=== PATIENT | female | born 1975 | race Caucasian/White ===

== ENCOUNTER → 2018-08-14 10:03 | Outpatient (CLI) | payer BC, SELFPAY ==
[2016-03-14 10:26] VITALS: BMI 24.5
== END ==
PROVIDERS: Family Provider Family Medicine; PCP Family Medicine; Referring Provider Family Medicine; Visit Provider Family Medicine
DX: N39.0 Urinary tract infection, site not specified (principal)
CPT/HCPCS: 87086; 87088; 87186

== ENCOUNTER → 2021-05-23 11:05 | Outpatient (CLI) | payer BC, SELFPAY ==
[2021-05-23 15:37] LABS: Cholesterol 165 mg/dL (200); High Density Lipoprotein 47 mg/dL; Triglycerides 70 mg/dL; Very Low Density Lipoprotein 14 mg/dL (5-40)
== END ==
PROVIDERS: PCP Family Medicine; Referring Provider Family Medicine; Visit Provider Family Medicine
DX: Z00.00 Encounter for general adult medical examination without abnormal findings (principal)
CPT/HCPCS: 36415; 80061

== ENCOUNTER → 2022-01-08 | Outpatient (CLI) | payer BC, SELFPAY ==
--- NOTE | 2022-01-08 13:46 | BI_ITS ---
MAMMOGRAPHY - BILATERAL SCREENING REASON FOR EXAM: Female, 46 years old. Routine annual screening examination. PERTINENT HISTORY: Aunt with breast cancer. TECHNIQUE: Digital bilateral breast pola (3D mammographic acquisition) in the CC and MLO projections. 2-D mediolateral oblique (MLO) and craniocaudad (CC) views of both breasts were obtained. CAD: Full Field Digital Mammography with Computer Added Detection was performed. COMPARISON: Comparison is made with prior outside examination dated 09/17/2016. FINDINGS: Breast Composition: The breasts are extremely dense, which lowers the sensitivity of mammography. There are no dominant masses or suspicious calcifications. No other significant abnormalities are identified. There has been no significant change since the prior study. BI/SCRN MAMM (CAD)W/POLA BILAT IMPRESSION: Stable bilateral screening mammogram. Yearly follow-up mammogram recommended. (A) ASSESSMENT CATEGORY: BIRADS Category 1: Negative. A letter regarding these results will be sent to the patient by the facility within 30 days. Approximately 10% of breast cancers are not detected by mammography. A normal mammogram should not delay biopsy of a clinically suspicious abnormality. [id number] Electronically Signed: Noel Weaver MD at 14:37 EDT ,
== END | disposition home or self-care (01) ==
LOC: OPBI 13:43
PROVIDERS: PCP Family Medicine; Referring Provider Family Medicine; Visit Provider Family Medicine
DX: Z12.31 Encounter for screening mammogram for malignant neoplasm of breast (principal)
CPT/HCPCS: 77063; 77067

== ENCOUNTER → 2022-06-06 | Outpatient (CLI) | payer BC, SELFPAY ==
[2022-06-06 10:46] LABS: Cholesterol 182 mg/dL (200); High Density Lipoprotein 43 mg/dL; Triglycerides 94 mg/dL; Very Low Density Lipoprotein 19 mg/dL (5-40)
== END | disposition home or self-care (01) ==
LOC: MTLAB 09:07
PROVIDERS: PCP Family Medicine; Referring Provider Family Medicine; Visit Provider Family Medicine
DX: Z00.00 Encounter for general adult medical examination without abnormal findings (principal)
CPT/HCPCS: 36415; 80061

== ENCOUNTER 2022-10-09 12:08 | Emergency (ER) | payer BC, SELFPAY ==
[2022-10-09 12:08] VITALS: BP 190/88; PULSE 124; RESP 16; TEMP 36.8; O2SAT 98; BMI 28.1
[2022-10-09 12:21] VITALS: BP 146/80; PULSE 108; RESP 18; O2SAT 98
--- NOTE | 2022-10-09 12:35 | CT_ITS ---
STUDY: CT PARANASAL SINUSES WITH CONTRAST REASON FOR EXAM: Female, 46 years old. Facial and jaw pain RADIATION DOSAGE (If Supplied By Facility): CTDIvol = ( 25.01 ) mGy, DLP = ( 523.64 ) mGycm TECHNIQUE: The patient was scanned in a multi-detector CT scanner. High resolution transaxial imaging was performed following the intravenous administration of IV 100mL Isovue-300. Sagittal and coronal images were reconstructed. Individualized dose optimization techniques were used for this CT. COMPARISON: None. FINDINGS: FRONTAL SINUSES: Normal development, occlusion of the right frontal sinus, left frontal sinus is patent ETHMOIDAL SINUSES: Normal development and aeration of the bilateral ethmoidal air cells with diffuse bilateral mucosal inflammatory disease. MAXILLARY SINUSES: Normal development and aeration of the bilateral maxillary antra with symmetric mucosal inflammatory disease. SPHENOIDAL SINUSES: Normal aeration of the bilateral sphenoid sinuses and there is no mucosal inflammatory disease. OMU: Normal aeration of the bilateral maxillary infundibulum. Normal uncinate process, ethmoid bulla, and hiatus semilunaris. MIDDLE TURBINATES: Normal bilateral middle turbinates without a gerardo bullosa or paradoxical curvature. INFERIOR TURBINATES: Normal bilateral inferior turbinates. NASAL SEPTUM: Slight nasal septal deviation to the right with a degenerative spur. Normal anterior cranial fossa, mahi nelson and cribriform plate. Normal bilateral orbital contents. Normal nasopharynx without adenoidal pad hypertrophy, or a posterior nasopharyngeal retention cyst. There is no demonstrated enhancing soft tissue or osseous abnormality. CT/Sinus/Facial Bone WITH Contras IMPRESSION: Diffuse mucosal thickening in the mid and inferior aspects of the maxillary sinuses, but the ostiomeatal complexes are widely patent. Opacified right frontal sinus Moderate bilateral ethmoid sinusitis No mucosal thickening or opacification in the sphenoid sinus No fracture or suspicious osseous lesion Electronically Signed: Gurmeet Shah MD at 13:23 EDT ,
--- NOTE | 2022-10-09 12:37 | EKG12_ITS ---
Test Reason : PAIN Blood Pressure : / mmHG Vent. Rate : 081 BPM Atrial Rate : 081 BPM P-R Int : 156 ms QRS Dur : 080 ms QT Int : 350 ms P-R-T Axes : 069 042 054 degrees QTc Int : 406 ms Normal sinus rhythm Normal ECG Confirmed by KRISTEN LILLY ([id number]), book or script editor DAGMAR MERCER ([id number]) on 10/15/2022 7:48:53 AM Referred By: PADMA Confirmed By:KRISTEN LILLY
--- NOTE | 2022-10-09 12:38 | EDS_ITS ---
HPI History of Present Illness Chief Complaint: Other, Pain/Inj Detail of Chief Complaint: Jaw pain Informant: patient Onset/Context/Timing Onset: Weeks (2) Context: Gradual Onset Timing: Continuous Quality: Ache Location: Left jaw Current Severity: Moderate Maximum Severity: Severe Worsened by: Moving jaw, especially anterior/posterior, eating Relieved by: Nothing including ibuprofen Associated Symptoms Associated Symptoms: Hurting into left ear and left lateral neck Narrative Narrative: Patient has had the symptoms for 2-week without any obvious injury/etiology. She was seen in urgent care, they sent her here. The patient is the only historian, she states they sent her here because her blood pressure was 144. She usually has blood pressures that are fairly normal including when she goes to her PCP and does not take any medication for blood pressure. She denies having any chest discomfort, arm pain, numbness or tingling, or dyspnea. She states she saw the dentist in the past 2 weeks and they ruled out a dental etiology of this. Eating makes it worse but she denies any foul taste or discharge in her mouth or bleeding. No throat symptoms. Furthermore she states she has a history of TMJ in the past, with clicking and states this is a different pain than that. Ibuprofen usually helps her TMJ and is not touching this. PFSH PFSH Medical History no medical history Home Medications citalopram 40 mg tablet 40 mg PO DAILY 03/14/16 [History Last Taken Unknown] ondansetron 4 mg disintegrating tablet 4 mg PO Q8H PRN PRN Nausea #10 tabs 03/14/16 [Rx Last Taken Unknown] oxycodone-acetaminophen 5 mg-325 mg tablet 1 - 2 tab PO Q4H PRN PRN Pain #20 tabs 03/14/16 [Rx Last Taken Unknown] amoxicillin 875 mg-potassium clavulanate 125 mg tablet 875 mg PO Q12H #20 TABLETS 10/09/22 [Rx Last Taken Unknown] hydrocodone-acetaminophen 5-325mg 5mg-325mg 1 tab PO Q6H PRN PRN Pain 3 days #10 TABLETS 10/09/22 [Rx Last Taken Unknown] Allergy/AdvReac Type Severity Reaction Status Date / Time No Known Allergies Allergy Verified 10/09/22 12:11 Family History no significant family his Surgical History Previous section Social History Smoking Status: Light Smoker (<10/day) ROS ROS ED Constitutional Constitutional ED: Denies chills or fever(s) Eyes Eyes: Denies change in vision or diplopia ENT ENT ED: Reports as per HPI and facial pain; Denies rhinorrhea or sore throat Cardiovascular Cardiovascular: Denies chest pain or palpitations Respiratory/Chest Respiratory/Chest: Denies cough, dyspnea or dyspnea on exertion Gastrointestinal Gastrointestinal: Denies abdominal pain, diarrhea, nausea or vomiting Genitourinary Genitourinary ED: Denies dysuria or hematuria Musculoskeletal Musculoskeletal: Reports neck pain; Denies back pain Integumentary Denies abscess or rash Neurologic Neurologic: Denies headache(s), paresthesias or weakness Psychiatric Psychiatric: Denies anxiety or suicidal thoughts EXAM Physical Exam Const Vital Signs: 10/09/22 12:08 10/09/22 12:21 Temperature 98.2 F Temperature Source Temporal Pulse Rate 124 H 108 H Respiratory Rate 16 18 Blood Pressure 190/88 H 146/80 H Blood Pressure Mean 122 102 Pulse Ox 98 98 Oxygen Delivery Method Room Air Room Air Positive well nourished and well developed General Appearance ED: well developed and NAD HEENT Reports moist mucous membranes HEENT Narrative: No malocclusion, no trismus. Nontender dentition. Normal voice and no stridor. Posterior oropharynx normal and clear. No tongue elevation or sublingual edema or submental swelling/tenderness. Patient has tenderness at Stensen's duct making her pain worse, but there is no discharge or erythema. Patient has tenderness reproducing her pain over the area where the left parotid is, however there is no swelling or erythema or palpable abnormality. TMJ preauricularly is not tender, she has no preauricular or periauricular lymphadenopathy, the external ear is benign the, the EAC is benign, and the TM is benign/normal. normocephalic and atraumatic Eyes PERRL and EOMs intact bilaterally Neck full ROM, no lymphadenopathy and supple Neck Narrative: But tender left superficial cervical without any palpable nodes. Chest Wall inspection of chest normal and palpation of chest normal Resp normal respiratory effort and clear to auscultation bilaterally Cardio regular rate, regular rhythm and no murmurs GI non-tender and non-distended Auscultation: normoactive bowel sounds Palpation: soft Back/Spine no CVA tenderness General Back: other FROM Extremity normal to inspection General Extremety ED: Negative for edema, pulses abnormal or tenderness General Extremity: Negative for edema or pulses abnormal Neuro oriented x3, CN's II-XII intact bilaterally and no sensory deficits noted Sensorium / Orientation: awake and alert Motor Exam: strength 5/5 throughout Psych mental status grossly normal Skin no rashes or lesions noted and no wounds MDM MDM MDM Narrative Medical decision making narrative: Initially patient presented into triage with blood pressure 190/88, certainly that is abnormally high but I am not concerned about a blood pressure of 144 when the patient is in pain. During my exam, her blood pressure is 132/80, again not an acute concern. The differential includes cardiac etiologies radiating to the jaw and neck, but given the exam with reproducible pain there, I think that is a lot less likely. I did do an EKG and a troponin, and those are negative. She is not having symptoms of an aortic dissection, so I do not think we need to do emergent imaging of her chest given this. I did, however, do imaging of her face with IV contrast, specifically looking to see if there is anything in the area of the left parotid that could be related to this pain. I reviewed the CT images, the parotid glands appear unremarkable, radiologist interpreted the scan as multiple sinus involvement of mucosal thickening without any air-fluid levels or signs of sinus obstruction. It is unknown if this represents the cause of her discomfort, as I discussed with her sinus pain can radiate, however her pain is reproducible away from any of the sinuses. Given her episode of high blood pressure, I did also do cardiac work-up in order to rule out referred discomfort from the heart, and that was negative/normal as well. Her blood pressure has been well controlled throughout her ED stay. At this time I think would be reasonable to treat her pain, and to put her on an antibiotic to treat sinus disease, referring her back to otolaryngology who she has seen before, if this does not resolve within the next 5 days. She is comfortable with that plan. Lab Data Attestation: I reviewed the patient's lab results. Labs: Laboratory Results - last 24 hr 10/09/22 10/09/22 12:48 12:48 WBC 9.0 RBC 4.91 Hgb 15.1 H Hct 44.7 MCV 91.0 MCH 30.8 MCHC 33.8 RDW Std Deviation 39.1 RDW Coeff of Claudette 11.7 Plt Count 287 MPV 9.9 Immature Gran % (Auto) 0.300 Neut % (Auto) 66.6 Lymph % (Auto) 24.0 Marquette % (Auto) 5.0 Eos % (Auto) 3.2 Baso % (Auto) 0.9 Absolute Neuts (auto) 6.0 Absolute Lymphs (auto) 2.16 Nucleated RBC % 0 Sodium 136 Potassium 3.8 Chloride 105 Carbon Dioxide 31.0 Anion Gap 0 L BUN 9 Creatinine 0.97 Estim Creat Clear Calc 67.12 Est GFR (MDRD) Af Amer 79 Est GFR (MDRD) Non-Af 65 BUN/Creatinine Ratio 9.3 L Glucose 118 H Calcium 8.9 Troponin I High Sens 3 Radiography Diagnostic Testing: Clinical Impression(s) from Imaging Studies Facial/Sinus 10/09/22 12:35 IMPRESSION: Diffuse mucosal thickening in the mid and inferior aspects of the maxillary sinuses, but the ostiomeatal complexes are widely patent. Opacified right frontal sinus Moderate bilateral ethmoid sinusitis No mucosal thickening or opacification in the sphenoid sinus No fracture or suspicious osseous lesion Electronically Signed: Gurmeet Shah MD at 13:23 EDT Reading Location ID and State: [facility] / [place] , Service support , Rhythm Strip Rhythm Strip: Sinus Rhythm Rate: 81 Ectopy: None EKG Initial EKG: Attestation: I personally reviewed and interpreted this EKG as follows: Interpretation: Sinus Rhythm and No Acute Injury Pattern Comments: Normal EKG Prior EKG tracings: available for review Prior: Unchanged Discharge Plan Triage Chief Complaint: Other, Pain/Inj ED Provider: Dago Carrasco Dx/Rx/DC Orders Clinical Impression: Pain, mandibular, Sinusitis Instructions: ED Sinusitis (Antibiotic Treatment) Prescriptions: New hydrocodone-acetaminophen [hydrocodone-acetaminophen] 5-325 mg tablet 1 tab PO Q6H PRN PRN (Reason: Pain) 3 Days Qty: 10 0RF amoxicillin-pot clavulanate [amoxicillin-pot clavulanate] 875-125 mg tablet 875 mg PO Q12H Qty: 20 0RF No Action citalopram 40 MG tablet 40 mg PO DAILY oxycodone-acetaminophen 1 TABLET tablet 1 - 2 tab PO Q4H PRN PRN (Reason: Pain) Qty: 20 0RF ondansetron 4 MG tablet 4 mg PO Q8H PRN PRN (Reason: Nausea) Qty: 10 0RF Primary Care Provider: Leeanna Salazar Referrals: Leeanna Salazar MD [Primary Care Provider] - Kenneth Elliott MD [Med Staff - Active Staff] - 3-5 Days if not improving Disposition Disposition: Home, Self Care
[2022-10-09 13:00] LABS: Absolute Lymphocyte Count 2.16 X10^3/uL (0.83-4.51); Basophil# 0.08 X10^3/uL; Basophil% 0.9 % (0-1); Eosinophil# 0.29 X10^3/uL; Eosinophils% 3.2 % (0-5); Hematocrit 44.7 % (37-47); Hemoglobin 15.1 g/dL (12.0-15.0); Lymphocyte # 2.16 X10^3/ul (0.83-4.51); Mean Corp Hgb Conc 33.8 g/dL (32-36); Mean Corpuscular Hgb 30.8 pg (27.0-32.0); Mean Platelet Vol. 9.9 fl (6.2-12.0); Monocyte# 0.45 X10^3/uL; NRBC Flagged by Analyzer 0 % (0-5); Neutrophil # 5.99 X10^3/uL (2.7-7.7); Neutrophil % 66.6 % (47-70); Platelet Count 287 K/mm3 (150-450); RBC Distribution Width CV 11.7 % (11.6-14.6); RBC Distribution Width SD 39.1 fl (35.1-43.9); Red Blood Count 4.91 M/mm3 (4.2-5.4)
[2022-10-09 13:20] LABS: Anion Gap 0 (5-15); BUN 9 mg/dL (7-18); BUN/Creat Ratio 9.3 RATIO (10-20); Calcium,Total 8.9 mg/dL (8.5-10.1); Chloride 105 mmol/L (98-107); Creatinine, Serum 0.97 mg/dL (0.55-1.02); EST Glomerular Filtration Rate 65 mL/min (>60); Est Glom Filt Rate - Afr Amer 79 mL/min (>60); Estimated Creatinine Clearance 67.12 ml/min; Glucose 118 mg/dL (74-106); Potassium 3.8 mmol/L (3.5-5.1); Sodium Level 136 mmol/L (136-145); Troponin-I HS 3 pg/mL (3.0-54.0)
== END 2022-10-09 14:34 | disposition home or self-care (01) ==
PROVIDERS: Emergency Provider Emergency Medicine; PCP Family Medicine; Visit Provider Emergency Medicine
DX: R68.84 Jaw pain (principal); F17.200 Nicotine dependence, unspecified, uncomplicated; J32.9 Chronic sinusitis, unspecified
CPT/HCPCS: 70487; 80048; 84484; 85025; 93005; 96360; 96361; 99282; J7040; Q9967; A4216

== ENCOUNTER → 2023-01-15 | Outpatient (CLI) | payer BC, SELFPAY ==
--- NOTE | 2023-01-15 15:48 | BI_ITS ---
MAMMOGRAPHY - BILATERAL SCREENING 3-D TOMOSYNTHESIS REASON FOR EXAM: Female, 47 years old. Routine screening PERTINENT HISTORY: Aunt with breast cancer.. TECHNIQUE: 2-D mammograms and 3-D Tomosynthesis of the breast (s) were performed. CAD was performed. COMPARISON: 01/08/2022 FINDINGS: The breast composition is heterogeneously dense that can obscure small breast masses. Scattered benign calcifications are seen. No dense spiculated masses or suspicious microcalcifications are identified. No architectural distortion is identified. There is no skin thickening or retraction. There has been no significant change since the prior study. BI/SCRN MAMM (CAD)W/POLA BILAT IMPRESSION: No mammographic signs of malignancy. Routine yearly mammograms recommended. ASSESSMENT CATEGORY: BIRADS Category 2: Benign. A letter regarding these results will be sent to the patient by the facility within 30 days. FOLLOW UP RECOMMENDATION: Yearly follow up mammogram recommended. (A) Approximately 10% of breast cancers are not detected by mammography. A normal mammogram should not delay biopsy of a clinically suspicious abnormality. Electronically Signed: Gurmeet Shah MD at 20:03 EDT ,
== END | disposition home or self-care (01) ==
LOC: OPBI 15:47
PROVIDERS: PCP Family Medicine; Referring Provider Family Medicine; Visit Provider Family Medicine
DX: Z12.31 Encounter for screening mammogram for malignant neoplasm of breast (principal)
CPT/HCPCS: 77063; 77067

== ENCOUNTER → 2023-04-07 | Outpatient (CLI) | payer BC, SELFPAY ==
[2023-04-07 15:42] LABS: Cholesterol 199 mg/dL (200); High Density Lipoprotein 50 mg/dL; Triglycerides 95 mg/dL; Very Low Density Lipoprotein 19 mg/dL (5-40)
[2023-04-07 16:20] LABS: Hemoglobin A1c 5.2 % (3.8-5.6)
== END | disposition home or self-care (01) ==
PROVIDERS: PCP Family Medicine; Referring Provider Family Medicine; Visit Provider Family Medicine
DX: Z00.00 Encounter for general adult medical examination without abnormal findings (principal)
CPT/HCPCS: 36415; 80061; 83036

== ENCOUNTER → 2023-12-22 | Outpatient (CLI) | payer BC, SELFPAY ==
[2023-12-22 18:03] LABS: Absolute Lymphocyte Count 3.07 X10^3/uL (0.83-4.51); Absolute Neutrophil Count 4.5 X10^3/uL (2.0-7.7); Basophil% 1.1 % (0-1); Eosinophil# 0.41 X10^3/uL; Eosinophils% 4.7 % (0-5); Hematocrit 46.1 % (37-47); Hemoglobin 15.3 g/dL (12.0-15.0); Lymphocyte # 3.07 X10^3/ul (0.83-4.51); Mean Corp Hgb Conc 33.2 g/dL (32-36); Mean Corpuscular Hgb 30.7 pg (27.0-32.0); Mean Corpuscular Volume 92.4 fL (81-99); Mean Platelet Vol. 10.9 fl (6.2-12.0); Monocyte# 0.71 X10^3/uL; Monocyte% 8.1 % (0-10); NRBC Flagged by Analyzer 0 % (0-5); Neutrophil # 4.46 X10^3/uL (2.7-7.7); Neutrophil % 50.9 % (47-70); Platelet Count 286 K/mm3 (150-450); RBC Distribution Width CV 12.1 % (11.6-14.6); RBC Distribution Width SD 41.1 fl (35.1-43.9); Red Blood Count 4.99 M/mm3 (4.2-5.4); White Blood Count 8.8 K/mm3 (4.4-11.0)
[2023-12-22 18:22] LABS: Hemoglobin A1c 5.1 % (3.8-5.6)
[2023-12-22 18:33] LABS: Anion Gap 4 (5-15); BUN 9 mg/dL (7-18); Chloride 109 mmol/L (98-107); Creatinine, Serum 0.82 mg/dL (0.55-1.02); EST Glomerular Filtration Rate 79 mL/min (>60); Est Glom Filt Rate - Afr Amer 96 mL/min (>60); Glucose 72 mg/dL (74-106); Potassium 4.5 mmol/L (3.5-5.1); Sodium Level 139 mmol/L (136-145)
== END | disposition home or self-care (01) ==
LOC: MFPLAB 14:41
PROVIDERS: PCP Family Medicine; Visit Provider Family Medicine
DX: Z00.01 Encounter for general adult medical examination with abnormal findings (principal)
CPT/HCPCS: 36415; 80048; 83036; 85025

== ENCOUNTER → 2024-01-20 | Outpatient (CLI) | payer BC, SELFPAY ==
--- NOTE | 2024-01-20 13:22 | BI_ITS ---
MAMMOGRAPHY - BILATERAL SCREENING REASON FOR EXAM: Female, 48 years old. Routine annual screening examination. PERTINENT HISTORY: Aunt with breast cancer. TECHNIQUE: Digital bilateral breast pola (3D mammographic acquisition) in the CC and MLO projections. 2-D mediolateral oblique (MLO) and craniocaudad (CC) views of both breasts were obtained. CAD: Full Field Digital Mammography with Computer Added Detection was performed. COMPARISON: Comparison is made with prior study dated January 15, 2023 and January 08, 2022. FINDINGS: Breast Composition: The breasts are heterogeneously dense, which may obscure small masses. There is a 1.5 cm x 1 cm well-defined nodule in the retroareolar region of the left breast. Correlation with ultrasound recommended. No other significant abnormalities are identified. BI/SCRN MAMM (CAD)W/POLA BILAT IMPRESSION: 1.5 cm x 1 cm well-defined nodule in the retroareolar region of the left breast. Correlation with ultrasound recommended. ASSESSMENT CATEGORY: BIRADS Category 0: Incomplete. Need additional imaging evaluation. A letter regarding these results will be sent to the patient by the facility within 30 days. Approximately 10% of breast cancers are not detected by mammography. A normal mammogram should not delay biopsy of a clinically suspicious abnormality. [id number] Electronically Signed: Noel Weaver MD at 14:18 EDT ,
== END | disposition home or self-care (01) ==
PROVIDERS: PCP Family Medicine; Referring Provider Family Medicine; Visit Provider Family Medicine
DX: Z12.31 Encounter for screening mammogram for malignant neoplasm of breast (principal)
CPT/HCPCS: 77063; 77067

== ENCOUNTER → 2024-01-22 | Outpatient (CLI) | payer BC, SELFPAY ==
--- NOTE | 2024-01-22 14:01 | US_ITS ---
STUDY: ULTRASOUND BREAST - LEFT REASON FOR EXAM: Female, 48 years old. Abnormal screening mammogram. TECHNIQUE: Axial and longitudinal images of the LEFT breast were performed with a high resolution ultrasound transducer. # OF IMAGES: 30 COMPARISON: Comparison is made with prior study dated January 20, 2024. FINDINGS: LEFT Breast: The mammographic abnormality corresponds to a 8 mm x 10 mm x 6 mm hypoechoic solid irregular nodule in the retroareolar region. Biopsy recommended. US/Breast Limited Unilateral IMPRESSION: The mammographic abnormality corresponds to a 8 mm x 10 mm x 6 mm hypoechoic solid irregular nodule in the retroareolar region of the left breast. Biopsy recommended. ASSESSMENT CATEGORY: BIRADS Category 4: Suspicious - Biopsy Should Be Considered. A letter regarding these results will be sent to the patient by the facility within 30 days. Electronically Signed: Noel Weaver MD at 14:59 EDT ,
== END | disposition home or self-care (01) ==
LOC: OPUS 13:57
PROVIDERS: PCP Family Medicine; Referring Provider Family Medicine; Visit Provider Family Medicine
DX: N63.25 Unspecified lump in the left breast, overlapping quadrants (principal)
CPT/HCPCS: 76642

== ENCOUNTER → 2024-02-06 | Outpatient (CLI) | payer BC, SELFPAY ==
--- NOTE | 2024-02-06 | BRBX_PTH ---
PATIENT: MELISSA ENRIQUEZ LOC: [facility] U#:[id number] AGE/SX: 48/F ROOM: RE02/06/[address]: Diane Blankenship PA-C : 1975 BED: DIS: 02/06/2024 SPEC #: [id number] RECD: 02/06/24 12:21 STATUS: LIAN ASHLEY #: [id number] JEANETTE: 02/06/24 00:[address]: Diane Blankenship DEPT: SURGICAL PATHOLOGY RECD BY: Siobhan rC ENTERED: 02/06/24 13:12 SP TYPE: BREAST BX CRISTINA DR: Dr. Leeanna Salazar MD Tissues: Left breast, NOS Procedures: Surgery Specimen Level IV HEADER OPERATION: Ultrasound guided left breast biopsy PRE-OP DIAGNOSIS: Left retroareolar nodule TISSUE SUBMITTED: Left retroareolar nodule MICROSCOPIC DIAGNOSIS Left retroareolar nodule, ultrasound guided core biopsy: Intraductal hyperplasia without atypia. Focal dense fibrosis. Negative for malignancy. See comment. / 02/09/2024 COMMENT Immunohistochemistry ([id number]) supports the above diagnosis. Correlation with clinical, radiologic findings and appropriate follow up are necessary. Case has been reviewed in consultation with Dr. Garcia who concurs with the above diagnosis. IDC:AM MICROSCOPIC DESCRIPTION Slides are reviewed. GROSS DESCRIPTION Received in fixative is one container labeled with the patient's name and designated Left retroareolar nodule. The specimen consists of multiple elongated fragments of vargas-yellow fibroadipose tissue that in aggregate measure 1.0 x 0.5 x 0.1 cm. The specimen is totally submitted in one cassette. / 02/06/2024 TC:5 CPT:99269
--- NOTE | 2024-02-06 | IMM_PTH ---
PATIENT: MELISSA ENRIQUEZ LOC: [facility] U#:[id number] AGE/SX: 48/F ROOM: RE02/06/[address]: Diane Blankenship PA-C : 1975 BED: DIS: 02/06/2024 SPEC #: [id number] RECD: 02/09/24 10:33 STATUS: LIAN REQ #: [id number] JEANETTE: 02/06/24 00:[address]: Diane Blankenship DEPT: IMMUNOHISTOCHEMISTRY RECD BY: Moustapha Merida ENTERED: 02/09/24 10:33 SP TYPE: IMMUNO OTHR DR: Dr. Leeanna Salazar MD Tissues: Left breast, NOS Procedures: E-CAD (initial) CALPONIN-1 (add) CK7 (add) CK8 (add) Vimentin (add) P40 (add) PHYSICIAN & INSTITUTION [place] [id number] SPECIMEN INFORMATION: Tissue Source: Left retroareolar nodule Clinical Info: Left retroareolar nodule Specimen Number: [id number] CPT code: 52076,58849h0 METHODOLOGY: Deparaffinized sections of prefer/formalin-fixed tissue or PAP/DQ stained slides are incubated with monoclonal/polyclonal antibodies/oligonucleotide probes. Localization is made via biotin free immunoperoxidase method. Appropriate controls are performed and reacted as expected. Results on target cell population are indicated in the following table: RESULTS: ANTIBODY / CLONE RESULT E-Cad (ECH-6) positive CK7 (OV-TL12/30) positive CK8 (02qcuuF17) positive Vimentin (V9) positive Calponin-1 (VA990Q) positive P40 (BC28) positive These tests were developed and their performance characteristics determined by [facility]. They may not have been cleared or approved by the U.S. Food and Drug Administration. The FDA has determined that such clearance or approval is not necessary. The above immunohistochemical/dualISH markers are ordered and reviewed by the Pathologist. INTERPRETATION: Left retroareolar nodule, ultrasound guided core biopsy: Negative for malignancy. DEZ/ 02/10/2024
--- NOTE | 2024-02-06 10:01 | US_ITS ---
ULTRASOUND GUIDED CORE BIOPSY REASON FOR EXAM: Female, 48 years old. Retroaortic nodule biopsy. COMPARISON: Comparison is made with prior sonogram dated January 22, 2024. TECHNIQUE: (All elements of maximal sterile barrier technique followed, including US elements as applicable) Under direct sonographic guidance, the surgeon performed core biopsies of the 8 mm x 10 mm x 6 mm hypoechoic solid nodule in the retroareolar region of the left breast. US/US Breast Biopsy 1st Lesion IMPRESSION: Ultrasound guided core biopsy of a mass in the LEFT breast in the retroareolar region of the breast. Electronically Signed: Nole Weaver MD at 8:09 EDT ,
--- NOTE | 2024-02-06 12:14 | PRO.PCM_ITS ---
Procedure Report Date of Procedure: 02/06/24 Procedure: Core needle biopsy of left breast Description: After a detailed discussion regarding the risks and benefits of the biopsy procedure, the patient was t positioned supine in the exam chair. Formal, written consents were obtained prior to positioning. Ultrasound was used to localize the lesion lesion in the upper outer quadrant of the left breast. Locally 2% lidocaine with epinephrine was infiltrated about the mass using ultrasound guidance. Once the area was sufficiently anesthetized, a small stab incision was made in the skin and the Cardiocore Cormax core needle device was introduced percutaneously. Ultrasound was used to guide the tip of the device to the border of the suspicious lesion. Then the mass was serially sampled with 4 cores which were placed in solution for pathologic processing. A marking clip was then placed under ultrasound guidance into the lateral aspect of the mass. Pressure was applied until hemostasis was obtained. The skin was cleaned and Steri-Strips were applied over the stab incision for the biopsy procedure. Patient tolerated the procedure with no complications EBL: 2 mL Complications: None Procedures Integumentary 16xxx-193xx: [id number] Bx breast 1st lesion us imag
== END | disposition home or self-care (01) ==
PROVIDERS: PCP Family Medicine; Referring Provider Physician Assistant; Visit Provider Physician Assistant
DX: N62 Hypertrophy of breast (principal); N60.32 Fibrosclerosis of left breast; R92.30 Dense breasts, unspecified; R92.8 Other abnormal and inconclusive findings on diagnostic imaging of breast
CPT/HCPCS: 19083; 88305; 88341; 88342

== ENCOUNTER 2024-09-01 09:58 | Day surgery (SDC) | payer BC, SELFPAY ==
[2024-09-01] VITALS (10 sets, daily range): BP systolic 108–115; BP diastolic 49–67; PULSE 74–90; RESP 14–18; TEMP 36.1–36.4; O2SAT 94–100; BMI 26.9
[2024-09-01] MEDS: Ipratropium/Albuterol Sulfate 3 ML AMPUL.NEB INHALATION (10:43)
--- NOTE | 2024-09-01 11:30 | CYST_PTH ---
PATIENT: MELISSA PEÑA LOC: [facility] – [place] U#:[id number] AGE/SX: 48/F ROOM: RE09/01/[address]: Dr. Chago Dutta MD : 1975 BED: DIS: 09/01/2024 SPEC #: [id number] RECD: 09/02/24 10:46 STATUS: LIAN RAMIREZ #: [id number] JEANETTE: 09/01/24 11:[address]: Chago Dutta DEPT: SURGICAL PATHOLOGY RECD BY: Moustapha Merida ENTERED: 09/02/24 10:47 SP TYPE: Cyst OTHR DR: Dr. Leeanna Salazar MD Tissues: CYST Procedures: Surgery Specimen Level III HEADER OPERATION: Mucous cyst excision of right ring finger PRE-OP DIAGNOSIS: Mucous cyst - right ring finger TISSUE SUBMITTED: Right ring finger - mucous cyst MICROSCOPIC DIAGNOSIS Right ring finger, mucous cyst, biopsy: * Fibroadipose tissue with small nerve bundles. * A cyst is not identified in these sections (deeper sections through the block examined). MICROSCOPIC DESCRIPTION Slides are reviewed. GROSS DESCRIPTION Received in formalin labeled, Melissa Peña, and designated right ring finger mucous cyst, is a vargas ragged and elongated fibrous tissue fragment that measures 1.2 x 0.2 x 0.2 cm. Totally submitted in one cassette.HALIMA. 09/02/2024 CPT:71879
--- NOTE | 2024-09-01 11:34 | PCM.HP.STD ---
HPI - General HPI Narrative Linh Peña is a delightful 48-year-old female who presents with a right ring finger cyst of approximately 1.5 months duration. She was referred here by her primary care physician. She reports that the cyst is causing her some pain and is on the back of her right ring finger. She reports that it has enlarged significantly in the past month and thinks that the skin is beginning to thin. It has never drained. Patient is otherwise healthy and nondiabetic She does smoke 4 to 5 cigarettes/day Patient is right-handed No history of bleeding or clotting problems No history of problems with anesthesia Current Encounter (DATE OF SURGERY H&P UPDATE): I saw and examined the patient this morning in pre-operative holding. We discussed risks and benefits of today's surgery and they would like to proceed. NO CHANGE in health history since last seen and evaluated. Ready to proceed with surgery. FORMERLY [facility] Medical History Post-menopausal Wears glasses Depression Anxiety Marijuana use Restless legs Smoker Leg cramps Home Medications ?Medication ?Instructions ?Recorded ?Last Taken ?Type citalopram 40 mg tablet 40 mg PO DAILY 03/14/16 08/31/24 History aripiprazole 5 mg tablet 5 mg PO QDAY 01/28/24 08/31/24 History trazodone 50 mg tablet 50 mg PO QHS 01/28/24 08/31/24 History Allergy/AdvReac Type Severity Reaction Status Date / Time No Known Allergies Allergy Verified 09/01/24 10:19 Surgical History Hx of tonsillectomy History of dilation and curettage S/P section Social History Smoking Status: Light Smoker (<10/day) alcohol intake: never substance use type: does not use Vital Signs Vital Signs Vital Signs: 09/01/24 10:20 09/01/24 10:45 Temperature 97 F L Temperature Source Temporal Pulse Rate 90 74 Respiratory Rate 16 16 Respiratory Pattern Normal Blood Pressure 108/62 Blood Pressure Mean 77 Blood Pressure Source Monitor Blood Pressure Position Semi-Fowlers Blood Pressure Location Right Arm Pulse Ox 100 Oxygen Delivery Method Room Air Weight Weight: 167 lb Body Mass Index (BMI) 26.9 Physical Exam Narrative Right Upper Extremity Inspection: 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 Mucous cyst/thinning of skin on the dorsal right ring finger DIP joint, radial side. No mallet deformity Motor: Able to bend and extend all MP, PIP, and DIP joints (EXCEPT DIP of the left index (s/p amputation) Sensory: Intact to light touch on the radial and ulnar borders. Vascular: Finger tips are warm and well perfused with <2 second capillary refill. Assessment & Plan Assessment/Plan (1) Mucous cyst of digit of right hand: PLAN: Plan Right ring finger mucous cyst. We talked about the natural course of the disease and how sometimes they drain. X-ray obtained in clinic today demonstrate some osteophytes around the DIP joint beneath the cyst I talked the patient extensively about the risks of surgery, including bleeding, infection (especially infection of the joint that could lead to osteomyelitis and need for amputation), damage to surrounding structures (including mallet injury or collateral ligament instability), surgical site dehiscence and wound formation (especially in the setting of smoking), need for wound care, need for repeat operations, failure to obtain the desired result, DVT/PE, and the risks of anesthesia including , including stroke (from low blood pressure/ischemia or clot). The benefits and alternatives of this surgery were also discussed. All of their questions were answered, and they agreed to proceed with surgery. I talked her about surgical options including excision/debridement followed by rotation flap versus excision over the DIP joint with debridement of the stalk and osteophytes, followed by letting the cyst and fluid on its own. We are going to do the latter to do his minimal trauma to the area as possible especially in the setting of her smoking. We talked about the natural history of hand tumors and how they are mostly benign. We talked about the risk of recurrence of this and how it can sometimes come back or they can get worse and there are no guarantees. I reiterated the importance of smoking cessation with wound healing. I talked her about postoperative protocol with splinting in extension for 1 month when she was in agreement. INTERVAL H&P PLAN, DATE OF SURGERY: We will proceed with surgery today. I talked to her about smoking and how she has a higher risk of wound healing with smoking and could delay this procedure until she stops smoking to mitigate wound healing risks. The cyst is getting larger and she reports that it hurts, and she's worried about it draining and getting infected, and therefore she wants to proceed with surgery today. We talked again about the above noted risks and she wants to proceed. I marked the right ring finger mucous cyst in preop and patient in agreement.
--- NOTE | 2024-09-01 11:44 | PRE.ANES_ITS ---
ASA Classification* ASA Classification ASA Classification: 2 Assessment & Plan Anesthesia* Anesthesia Assessment Anesthesia Assessment: Discussed sedation and/or anesthesia options, risks, benefits, and alternatives with patient/parents/legal guardian/POA. Questions invited. The patient/parents/legal guardian/POA seems to understand and agrees to proceed with anesthesia plan. Reviewed the physical assessment, medical history, allergy history and patient home medications list prior to surgery/procedure/anesthetic and documented any changes. Performed airway and anesthesia risk assessments. Anesthesia Type Anesthesia Type: MAC Anesthesia Focused Assessment* Temperature: 97 F Pulse Rate: 74 Blood Pressure: 108/62 Respiratory Rate: 16 Pulse Ox: 100 Airway Assessment Mouth opens: >3 cm Mallampati Score: II Focused Labs Anesthesia Preop lab: CBC WBC 8.8 K/mm3 (4.4-11.0) 12/22/23 14:44 12/22/23 RBC 4.99 M/mm3 (4.2-5.4) 12/22/23 14:44 12/22/23 Hgb 15.3 g/dL (12.0-15.0) H 12/22/23 14:44 4 Hct 46.1 % (37-47) 12/22/23 14:44 12/22/23 Plt Count 286 K/mm3 (150-450) 12/22/23 14:44 12/22/23 CHEMISTRY Potassium 4.5 mmol/L (3.5-5.1) 12/22/23 14:44 12/22/23 Sodium 139 mmol/L (136-145) 12/22/23 14:44 12/22/23 BUN 9 mg/dL (7-18) 12/22/23 14:44 12/22/23 Creatinine 0.82 mg/dL (0.55-1.02) 12/22/23 14:44 12/22/23 Glucose 72 mg/dL (74-106) L 12/22/23 14:44 12/22/23 TSH 2.35 uIU/mL (0.358-3.74) 11/14/15 12:04 COAG Pre-Assessment Diagnosis/Proposed Procedure Planned Operative Procedure(s): MUCOUS CYST EXCISION RIGHT RING FINGER Anesthesia History Anesthesia History - pressurised container filler: Anesthesia History - pressurised container filler Hx Hospitalization No 08/26/24 08:17 Any Problems With Anesthesia No 08/26/24 08:17 Cholinesterase deficiency No 08/26/24 08:17 You/Your Family Experience No 08/26/24 08:17 fever (hyperthermia) with Relationship Recent Exposure to Contagious No 09/01/24 10:20 Disease Does patient have nerve No 08/26/24 08:17 stimulator Patient instructed to have device shut off --Does patient have Pacemaker No 09/01/24 10:20 or ICD? When Was Last Pacemaker Check QUESTION #4 FULL TEXT: You/Your Family Experience fever (hyperthermia) with Anesthesia Last Oral Intake Last Oral intake: Last Oral Intake NPO since 00:00 09/01/24 10:20 Meds taken in AM with sips of water? Meds patient instructed to take am of surgery PONV PONV - pressurised container filler: PONV - pressurised container filler Female Yes 08/26/24 08:17 HX of Motion Sickness No 08/26/24 08:17 HX of N/V After Surgery No 08/26/24 08:17 Non-Smoker No 08/26/24 08:17 Duration of Surgery greater No 08/26/24 08:17 than 60 minutes Number of Risk Factors 1 08/26/24 08:17 PONV Score Low Risk 08/26/24 08:17 Height & Weight Height & Weight: Anesthesia: Height & Weight Height 5 ft 6 in 09/01/24 10:20 Weight: 75.75 kg 09/01/24 10:20 Body Mass Index (BMI) 26.9 09/01/24 10:20 Respiratory Assessment Respiratory Assessment - pressurised container filler: Respiratory Tract Infection Hx - pressurised container filler Hx Respiratory Tract Infection No 08/26/24 08:17 STOP Sleep Apnea STOP Sleep Apnea - pressurised container filler: STOP Sleep Apnea - pressurised container filler Hx Hypertension No 08/26/24 08:17 Hx Sleep Apnea No 08/26/24 08:17 CPAP BIPAP Do you snore loudly (louder No 08/26/24 08:17 than talking or can be heard Do you often feel tired/ No 08/26/24 08:17 fatigued/ sleepy during daytime? Has anyone observed you stop No 08/26/24 08:17 breathing during sleep? STOP Results Negative 08/26/24 08:17 QUESTION #5 FULL TEXT : Do you snore loudly (louder than talking or can be heard through closed doors)? 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 Specify any problems Hx of Preganancy in last 3 No 08/26/24 08:17 Months Nurse Filling Out Transfusion [email or web address] 08/26/24 08:17 & Questions: Date: 08/26/24 08/26/24 08:17 Time: 08:19 08/26/24 08:17 Patient unable to answer at this time (ie. confused, unrespo /Reproduction History /Reproductive History - pressurised container filler: /Reproductive Hx- pressurised container filler Hx Now No 08/26/24 08:17 Gestational Age (in weeks): EDC: Hx Hx Para Hx Section SAB No 08/26/24 08:17 PFSH Medical History Post-menopausal Wears glasses Depression Anxiety Marijuana use Restless legs Smoker Leg cramps Home Medications ?Medication ?Instructions ?Recorded ?Last Taken ?Type citalopram 40 mg tablet 40 mg PO DAILY 03/14/1610/22 History aripiprazole 5 mg tablet 5 mg PO QDAY 01/28/24 History trazodone 50 mg tablet 50 mg PO QHS 01/28/24 History Allergy/AdvReac Type Severity Reaction Status Date / Time No Known Allergies Allergy Verified 09/01/24 10:19 Surgical History Hx of tonsillectomy History of dilation and curettage S/P section Social History Smoking Status: Light Smoker (<10/day) alcohol intake: never substance use type: does not use Review of Systems (Anesthesia) ROS Narrative System reviewed and no additional complaints, except as documented.
[2024-09-01] MEDS: Cefazolin 2 GM in Syringe IV (11:48)
[2024-09-01] MEDS: Bupivacaine 0.25% 30 ML Vial (12:05)
[2024-09-01] MEDS: Lidocaine 1% (20 ml mdv) 20 ML Vial (12:05)
--- NOTE | 2024-09-01 12:27 | PCM.POST.ANE ---
Anesthesia: Postop Eval I Current Vital Signs Temperature: 97.6 F Pulse Rate: 82 Blood Pressure: 109/49 Respiratory Rate: 18 Pulse Ox: 97 Oxygen Delivery Method: Room Air Assessment Airway patent: Yes Spontaneous unlabored respirations: Yes Mental status: Awake nausea: No Vomiting: No Anesthesia Complication: No Fluid Hydration Crystalloid volume administer (ml): 10 Total IV fluid infused: 10 Progress Note Anesthesia document: Postop Eval 1 completed: Yes
--- NOTE | 2024-09-01 12:34 | POSTOPAN2_ITS ---
Anesthesia Postop Eval I Sum Postop Eval Completion status Anesthesia document: Postop Eval 1 completed: Yes Anesthesia Postop Eval I Summary Anesthesia Postop Eval I Summary: Anesthesia Postop Eval I: Assessment Summary Airway patent Yes 09/01/24 12:28 [email or web address] Spontaneous unlabored Yes 09/01/24 12:28 [email or web address] respirations Mental status Awake 09/01/24 12:28 [email or web address] nausea No 09/01/24 12:28 [email or web address] Vomiting No 09/01/24 12:28 [email or web address] Anesthesia Postop Eval I: Fluid Summary Crystalloid volume administer 10 09/01/24 12:28 [email or web address] (ml) Colloids volume administered ( ml) Blood Product volume administered (ml) Total IV fluid infused 10 09/01/24 12:28 [email or web address] Anesthesia Postop Eval I: Summary Notes Anesthesia Complication No 09/01/24 12:28 [email or web address] Anesthesia Complication Comment: Post-operative progress note Anesthesia: Postop Eval II Evaluation Mental status: Awake Pain Level: 0 nausea: No Vomiting: No
--- NOTE | 2024-09-01 12:34 | PCM.POSTANE2 ---
Anesthesia Postop Eval I Sum Postop Eval Completion status Anesthesia document: Postop Eval 1 completed: Yes Anesthesia Postop Eval I Summary Anesthesia Postop Eval I Summary: Anesthesia Postop Eval I: Assessment Summary Airway patent Yes 09/01/24 12:28 [email or web address] [email or web address] Spontaneous unlabored Yes 09/01/24 12:28 [email or web address] respirations Mental status Awake 09/01/24 12:28 [email or web address] nausea No 09/01/24 12:28 [email or web address] Vomiting No 09/01/24 12:28 [email or web address] [email or web address] Anesthesia Postop Eval I: Fluid Summary Crystalloid volume administer 10 09/01/24 12:28 [email or web address] [email or web address] (ml) Colloids volume administered ( ml) Blood Product volume administered (ml) Total IV fluid infused 10 09/01/24 12:28 [email or web address] [email or web address] Anesthesia Postop Eval I: Summary Notes Anesthesia Complication No 09/01/24 12:28 [email or web address] Anesthesia Complication Comment: Post-operative progress note Anesthesia: Postop Eval II Evaluation Mental status: Awake Pain Level: 0 nausea: No Vomiting: No
--- NOTE | 2024-09-02 06:57 | OP.PCM_ITS ---
Operative Report (Standard) Operative Information Date of Procedure: 09/01/24 Pre-Operative Diagnosis: 1) Mucous cyst of the right ring finger DIP joint Post-Operative Diagnosis: Same Surgery/Procedure Performed: 1) Excision of the right ring finger DIP joint mucous cyst, CPT: 95708 carbonation equipment operator: No Type of Anesthesia: MAC/Supplemental (9 cc of a 50/50 mixture of 1% lidocaine and 0.25% Marcaine ) RN Documented Start/Stop Times: Operation Date: 09/01/24 11:30 Case Time Into Pre-Op 09/01/24 10:05 Out of Pre-Op 09/01/24 11:40 Anesthesia Start 09/01/24 11:48 Into Room 09/01/24 11:48 Procedure Start 09/01/24 12:03 Procedure End 09/01/24 12:20 Anesthesia End 09/01/24 12:21 Out of Room 09/01/24 12:21 Into Recovery 09/01/24 12:23 Into Phase II Recovery 09/01/24 13:02 Out of Recovery 09/01/24 13:02 Out of Phase II 09/01/24 13:20 Procedure Start Time: 12:03 Procedure Stop Time: 12:20 Select all DRAINS/GRAFTS/IMPLANTS that apply: None Estimated Blood Loss: minimal Specimen collected: Yes Description of specimen(s) removed: Mucous cyst stalk/capsule, right ring finger Description of surgery: Indications: Patient presents with a right ring finger mucous cyst. I discussed the risk, benefits, and alternatives to the procedure, and she elected to proceed with excision. I marked the correct finger and preoperative holding with the patient in agreement. Procedure details: Patient was correctly identified in the preoperative holding area and taken back to the operating room where she was administered sedation. She was prepped and draped in sterile fashion. A digital block was performed and a turnicot was applied to the right ring finger with care taken to remove at the end of the case. A timeout was performed. We began the procedure by making an incision dorsally over the DIP joint and dissecting distally towards the underside of the cyst. At this point we had exposure to the dorsal aspects of the lateral joint and the terminal slip, as well as the cyst stalk. A curette was then used to excise the joint stock and debride the lateral portions of the joint/potential osteophytes with care taken preserve the terminal slip and the collateral ligaments. The wound was irrigated with copious amounts normal saline. The cyst material (joint fluid) and the stalk of the cyst were removed, and the joint stalk/capsule was sent to pathology. The skin overlying the cyst was left in place. The turnicot was removed and hemostasis was obtained with bipolar electrocautery and the stalk of the cyst cauterized. The wound was closed with interrupted 4-0 nylon suture, a splint with Alumafoam (DIP joint extension) was applied, with xeroform Melissa and loose coban. The patient tolerated the procedure well and was awakened and taken to the PACU in stable condition. Surgical Findings: Consistent with a mucous cyst of the right ring finger Complications Complications: No
== END 2024-09-01 13:20 | disposition home or self-care (01) ==
LOC: SDC 09:59 → AC 10:00
PROVIDERS: PCP Family Medicine; Referring Provider Surgery Plastic and Reconstructive Surgery; Visit Provider Surgery Plastic and Reconstructive Surgery
PROC: (CPT 26055; principal; 2024-09-01 11:15)
DX: M25.841 Other specified joint disorders, right hand (principal); F17.210 Nicotine dependence, cigarettes, uncomplicated; Z79.899 Other long term (current) drug therapy
CPT/HCPCS: 26160; 01810; 88304; 94640; A4216; J2405

== ENCOUNTER 2024-10-25 13:15 | Outpatient (RCR) | payer BC, SELFPAY ==
[2024-10-11 09:09] VITALS: BP 118/69; PULSE 75; RESP 18; TEMP 36.2; BMI 26.1
--- NOTE | 2024-10-11 09:48 | PCM.PN.SRG ---
Subjective Subjective Doing well overall. Feels like wound is gotten significantly smaller with the hydrogel. Objective Data Objective Data Vital Signs: Vital Signs Temp Pulse Resp BP 97.2 F L 75 18 118/69 10/11/24 09:09 10/11/24 09:09 10/11/24 09:09 10/11/24 09:09 Weight: 162 lb Body Mass Index (BMI) 26.1 Physical Exam Narrative Right ring finger with near complete reepithelialization. No drainage. No signs of infection of the joint. No mallet finger and no collateral ligament instability. Assessment & Plan Assessment/Plan (1) Mucous cyst of digit of right hand: PLAN: Wound status post excision Healing well No signs of joint infection. Continue splinting in extension for 1 more week and continue hydrogel. Anticipate there will be healed at that point. Charges/Coding Procedures Integumentary 111xxx-113xx: 34045 Global Visit
--- NOTE | 2024-10-12 14:47 | WC ---
PHOTO 10/11/24 RIGHT 4TH FINGER
[2024-10-18 13:32] VITALS: BP 130/78; PULSE 86; RESP 16; TEMP 36.2; BMI 26.1
--- NOTE | 2024-10-18 15:07 | PCM.PROGNOTE ---
Subjective Subjective Doing well overall. Endorses good dressing changes and smaller wound. Objective Data Objective Data Vital Signs: Vital Signs Temp Pulse Resp BP O2 Del Method 97.2 F L 86 16 130/78 H Room Air 10/18/24 13:32 10/18/24 13:32 10/18/24 13:32 10/18/24 13:32 10/18/24 13:32 Oxygen Delivery Method Room Air Weight: 162 lb Body Mass Index (BMI) 26.1 Physical Exam Narrative Right ring finger with near complete reepithelialization. No drainage. No signs of infection of the joint. No mallet finger and no collateral ligament instability. Assessment & Plan Assessment/Plan (1) Mucous cyst of digit of right hand: PLAN: Wound status post excision Healing well No signs of joint infection. Continue hydrogel. Anticipate there will be healed at follow-up in 1 week Charges/Coding Procedures Integumentary 111xxx-113xx: [id number] Global Visit
--- NOTE | 2024-10-19 10:20 | WC ---
PHOTO 10/18/24 RIGHT RING FINGER
[2024-10-25 13:48] VITALS: BP 130/77; PULSE 100; RESP 16; TEMP 36.2; BMI 26.1
--- NOTE | 2024-10-26 09:01 | WC ---
PHOTO 10/25/24 RIGHT 4TH FINGER
--- NOTE | 2024-10-26 13:41 | PCM.PN.SRG ---
Subjective Subjective Doing well. No pain. No drainage or induration. Objective Data Objective Data Vital Signs: Vital Signs Temp Pulse Resp BP O2 Del Method 97.1 F L 100 16 130/77 H Room Air 10/25/24 13:48 10/25/24 13:48 10/25/24 13:48 10/25/24 13:48 10/25/24 13:48 Oxygen Delivery Method Room Air Weight: 162 lb Body Mass Index (BMI) 26.1 Physical Exam Narrative Right ring finger with near complete reepithelialization. No drainage. No signs of infection of the joint. No mallet finger and no collateral ligament instability. Assessment & Plan Assessment/Plan (1) Mucous cyst of digit of right hand: PLAN: Wound status post excision Healing well. No signs of joint infection. Continue hydrogel. Anticipate there will be healed at follow-up in 2 weeks Charges/Coding Procedures Integumentary 111xxx-113xx: [id number] Global Visit
== END 2024-10-27 23:59 | disposition home or self-care (01) ==
LOC: WC 13:15
PROVIDERS: PCP Family Medicine; Referring Provider Surgery Plastic and Reconstructive Surgery; Visit Provider Surgery Plastic and Reconstructive Surgery
DX: M67.48 Ganglion, other site (principal)
CPT/HCPCS: 11042; 99213; G0463

== ENCOUNTER 2024-11-15 13:16 | Outpatient (RCR) | payer BC, SELFPAY ==
[2024-10-28 00:22] VITALS: BP 130/77; PULSE 100; RESP 16; TEMP 36.2; BMI 26.1
[2024-11-15 13:21] VITALS: BP 150/74; PULSE 88; RESP 18; TEMP 36.3; BMI 26.1
--- NOTE | 2024-11-15 15:38 | PCM.PN.SRG ---
Subjective Subjective Doing well. No pain. No drainage or induration. Feels like it is healed Objective Data Objective Data Vital Signs: Vital Signs Temp Pulse Resp BP 97.3 F L 88 18 150/74 H 11/15/24 13:21 11/15/24 13:21 11/15/24 13:21 11/15/24 13:21 Weight: 162 lb Body Mass Index (BMI) 26.1 Physical Exam Narrative Right ring finger with reepithelialization. No drainage. No signs of infection of the joint. No recurrence of the mucous cyst. No mallet finger and no collateral ligament instability. Assessment & Plan Assessment/Plan (1) Mucous cyst of digit of right hand: PLAN: Healed Plan for follow-up in 7 weeks for final pictures Patient happy with the plan No restrictions at this point Charges/Coding Procedures Integumentary 111xxx-113xx: [id number] Global Visit
== END 2024-11-25 14:34 | disposition home or self-care (01) ==
LOC: WC 13:16
PROVIDERS: PCP Family Medicine; Referring Provider Surgery Plastic and Reconstructive Surgery; Visit Provider Surgery Plastic and Reconstructive Surgery
DX: M67.441 Ganglion, right hand (principal)
CPT/HCPCS: 99213; G0463

== ENCOUNTER → 2025-04-11 | Outpatient (CLI) | payer BC, SELFPAY ==
[2025-04-11 18:17] LABS: Anion Gap 11 (5-15); BUN 12 mg/dL (4-19); BUN/Creat Ratio 20.7 RATIO (10-20); Calcium,Total 9.5 mg/dL (7.6-11.0); Carbon Dioxide 24.5 mmol/L (21.0-32.0); Chloride 103 mmol/L (98-108); Cholesterol 184 mg/dL (<=200); Glucose 105 mg/dL (70-99); Low Density Lipoprotein Calc. 105 mg/dL; Potassium 4.0 mmol/L (3.3-5.1); Triglycerides 46 mg/dL; Very Low Density Lipoprotein 9 mg/dL (5-40); cholesterol:hdl ratio screen 2.62
== END | disposition home or self-care (01) ==
LOC: MFPLAB 14:44
PROVIDERS: PCP Family Medicine; Visit Provider Family Medicine
DX: Z00.00 Encounter for general adult medical examination without abnormal findings (principal)
CPT/HCPCS: 36415; 80048; 80061